=== PATIENT | male | born 1970 | race Caucasian/White ===

== ENCOUNTER → 2016-08-31 | Outpatient (CLI) | payer MEDICARE, MEDICAID ==
[~2016-08-31] MED LIST: ANAPROX DS550 MG PO; DEPAKOTE250 MG PO; ZITHROMAX Z PA250 MG PO; ZYPREXA20 MG PO
[2016-08-31 08:35] LABS: BASO % 0.5 % (0.0-1.0); EOS # 0.1 10*3/uL (0.0-0.4); EOS % 1.8 % (1.0-4.0); HEMATOCRIT 47.2 % (42.0-52.0); HEMOGLOBIN 16.1 g/dl (14.0-18.0); LYMPH # 3.2 10*3/uL (1.3-4.4); LYMPH % 41.2 % (27.0-41.0); MEAN CELL VOLUME 93.8 fl (80.0-94.0); MEAN CORPUSCULAR HGB CONC 34.1 g/dl (33.0-37.0); MONO # 0.5 10*3/uL (0.1-1.0); MONO % 6.4 % (3.0-9.0); NEUT # 3.9 10*3/uL (2.3-7.9); NEUT % 49.7 % (47.0-73.0); PLATELET COUNT AUTOMATED 208 10*3/uL (130-400); RED BLOOD COUNT 5.03 10*6/uL (4.50-5.90); RED CELL DISTRI WIDTH 12.8 % (0-14.5); WHITE BLOOD COUNT 7.9 10*3/uL (4.8-10.8)
[2016-08-31 09:20] LABS: ALBUMIN 3.7 gm/dl (3.1-4.5); ALKALINE PHOSPHATASE 74 U/L (45-117); BILIRUBIN, TOTAL 0.3 mg/dl (0.2-1.0); BUN 13 mg/dl (7-24); CARBON DIOXIDE 28 mmol/L (21-32); CHLORIDE 108 mmol/L (98-107); EST GLOM FILT AFRICAN AMERICAN > 60 ml/min; GLUCOSE 103 mg/dL (65-99); POTASSIUM 3.9 mmol/L (3.5-5.1); SGOT/AST 12 IU/L (3-35); SGPT/ALT 17 U/L (12-78); SODIUM 142 mmol/L (136-145); TOTAL PROTEIN 7.2 gm/dL (6.4-8.2)
[2016-08-31 09:56] LABS: VITAMIN D, 25-HYDROXY 17.2 ng/mL (30-100)
== END | disposition home or self-care (01) ==
LOC: LAB 08:12
PROVIDERS: Physician Assistant
DX: Z51.81 Encounter for therapeutic drug level monitoring (principal); E55.9 Vitamin D deficiency, unspecified; Z79.899 Other long term (current) drug therapy

== ENCOUNTER → 2017-07-22 | Outpatient (CLI) | payer MEDICARE, MEDICAID ==
[2017-07-22 09:19] LABS: BASO # 0.1 10*3/uL (0.0-0.1); BASO % 0.8 % (0.0-1.0); EOS # 0.1 10*3/uL (0.0-0.4); EOS % 1.8 % (1.0-4.0); HEMATOCRIT 46.6 % (42.0-52.0); HEMOGLOBIN 15.5 g/dl (14.0-18.0); LYMPH # 2.7 10*3/uL (1.3-4.4); LYMPH % 40.3 % (27.0-41.0); MEAN CELL VOLUME 93.4 fl (80.0-94.0); MEAN CORPUSCULAR HGB 31.1 pg (27.0-31.0); MEAN CORPUSCULAR HGB CONC 33.3 g/dl (33.0-37.0); MEAN PLATELET VOLUME 9.1 fl (9.6-12.3); MONO # 0.4 10*3/uL (0.1-1.0); MONO % 6.2 % (3.0-9.0); NEUT # 3.4 10*3/uL (2.3-7.9); NEUT % 50.6 % (47.0-73.0); PLATELET COUNT AUTOMATED 230 10*3/uL (130-400); RED BLOOD COUNT 4.99 10*6/uL (4.50-5.90); RED CELL DISTRI WIDTH 13.1 % (0-14.5); WHITE BLOOD COUNT 6.6 10*3/uL (4.8-10.8)
[2017-07-22 09:52] LABS: ALBUMIN 3.4 gm/dl (3.1-4.5); ALKALINE PHOSPHATASE 74 U/L (45-117); BUN 11 mg/dl (7-24); CHLORIDE 109 mmol/L (98-107); CREATININE 0.85 mg/dL (0.70-1.30); SGOT/AST 11 IU/L (3-35); SGPT/ALT 20 U/L (12-78); SODIUM 142 mmol/L (136-145); TOTAL PROTEIN 7.1 gm/dL (6.4-8.2); VALPROIC ACID (DEPAKENE) 67.1 ug/ml (50-100)
[2017-07-22 10:27] LABS: VITAMIN D, 25-HYDROXY 14.9 ng/mL (30-100)
== END | disposition home or self-care (01) ==
LOC: LAB 09:00
PROVIDERS: Physician Assistant
DX: Z12.5 Encounter for screening for malignant neoplasm of prostate (principal); F20.9 Schizophrenia, unspecified; F31.60 Bipolar disorder, current episode mixed, unspecified; F41.9 Anxiety disorder, unspecified; E55.9 Vitamin D deficiency, unspecified

== ENCOUNTER → 2017-11-23 | Outpatient (CLI) | payer MEDICARE, MEDICAID ==
[2017-11-23 08:31] LABS: BASO # 0.1 10*3/uL (0.0-0.1); BASO % 0.8 % (0.0-1.0); EOS # 0.1 10*3/uL (0.0-0.4); EOS % 1.8 % (1.0-4.0); HEMATOCRIT 45.8 % (42.0-52.0); HEMOGLOBIN 15.3 g/dl (14.0-18.0); LYMPH # 2.7 10*3/uL (1.3-4.4); LYMPH % 40.4 % (27.0-41.0); MEAN CELL VOLUME 93.7 fl (80.0-94.0); MEAN CORPUSCULAR HGB 31.3 pg (27.0-31.0); MEAN CORPUSCULAR HGB CONC 33.4 g/dl (33.0-37.0); MEAN PLATELET VOLUME 8.9 fl (9.6-12.3); MONO # 0.5 10*3/uL (0.1-1.0); MONO % 7.6 % (3.0-9.0); NEUT # 3.2 10*3/uL (2.3-7.9); NEUT % 48.6 % (47.0-73.0); PLATELET COUNT AUTOMATED 231 10*3/uL (130-400); RED BLOOD COUNT 4.89 10*6/uL (4.50-5.90); WHITE BLOOD COUNT 6.6 10*3/uL (4.8-10.8)
== END | disposition home or self-care (01) ==
LOC: LAB 08:17
PROVIDERS: Physician Assistant
DX: F31.60 Bipolar disorder, current episode mixed, unspecified (principal); E55.9 Vitamin D deficiency, unspecified; Z79.899 Other long term (current) drug therapy

== ENCOUNTER → 2019-09-28 | Outpatient (CLI) | payer OTHER | END | disposition home or self-care (01) | LOC: RAD 14:07 | DX: M25.572 Pain in left ankle and joints of left foot (principal) ==